=== PATIENT | male | born 1980 | race Caucasian/White ===

== ENCOUNTER 2020-09-03 18:04 | Outpatient (REF) | payer MEDICAID, SELFPAY ==
[2020-09-03 21:40] LABS: Hemoglobin A1C 5.5 % (<5.7)
[2020-09-03 22:02] LABS: ALT 54 U/L (16-63); AST 37 U/L (15-37); Albumin 4.2 g/dL (3.4-5.0); Alkaline Phosphatase 124 U/L (46-116); Anion Gap 6.6 mmol/L (3-11); BUN 16 mg/dL (7-18); Bilirubin, Total 0.2 mg/dL (0.2-1.0); CO2 29.4 mmol/L (21.0-32.0); CREATININE 1.17 mg/dL (0.70-1.30); Chloride 104 mmol/L (98-107); Glucose 105 mg/dL (74-106); Potassium 4.4 mmol/L (3.5-5.1); Sodium 140 mmol/L (136-145)
[2020-09-03 22:35] LABS: Calculated LDL 116 mg/dL (<100); Cholesterol 208 mg/dL (<200); HDL Cholesterol 43 mg/dL (40-60); Triglyceride 248 mg/dL (<150)
== END 2020-09-03 18:24 ==
LOC: NCHCN 18:04
PROVIDERS: Visit Provider Family Medicine
DX: R73.03 Prediabetes (principal); I10 Essential (primary) hypertension; E78.5 Hyperlipidemia, unspecified
CPT/HCPCS: 80053; 80061; 83036

== ENCOUNTER 2022-05-09 16:25 | Outpatient (REF) | payer MEDICAID, SELFPAY ==
[2022-05-09 20:43] LABS: ALT 118 U/L (16-63); AST 54 U/L (15-37); Albumin 4.1 g/dL (3.4-5.0); Alkaline Phosphatase 157 U/L (46-116); Anion Gap 9.2 mmol/L (3-11); BUN 14 mg/dL (7-18); Bilirubin, Total 0.3 mg/dL (0.2-1.0); CO2 26.8 mmol/L (21.0-32.0); CREATININE 1.2 mg/dL (0.70-1.30); Calcium 8.8 mg/dL (8.5-10.1); Calculated LDL 130 mg/dL (<100); Chloride 103 mmol/L (98-107); Cholesterol 209 mg/dL (<200); Glucose 108 mg/dL (74-106); HDL Cholesterol 41 mg/dL (40-60); Sodium 139 mmol/L (136-145); Total Protein 6.9 g/dL (6.4-8.2); Triglyceride 194 mg/dL (<150)
== END 2022-05-09 16:26 | disposition home or self-care (01) ==
LOC: NCHCN 16:25
PROVIDERS: Visit Provider Family Medicine
DX: E78.5 Hyperlipidemia, unspecified (principal); K76.0 Fatty (change of) liver, not elsewhere classified; R94.5 Abnormal results of liver function studies
CPT/HCPCS: 80053; 80061

== ENCOUNTER 2022-10-04 17:25 | Outpatient (REF) | payer MEDICAID, SELFPAY ==
[2022-10-04 20:48] LABS: HCT 46.8 % (40.0-50.0); HGB 15.7 g/dL (13.5-17.5); MCH 29.5 pg (27.0-33.0); MCHC 33.5 % (32.0-36.0); MCV 88 fL (80-95); Platelet Count 169 10^3/uL (130-400); RBC 5.33 10^6/uL (4.36-5.78); RDW 12.4 % (11.8-14.1)
[2022-10-04 20:59] LABS: Prothrombin Time 9.9 sec (9.3-11.0)
== END 2022-10-04 17:26 | disposition home or self-care (01) ==
LOC: NCHCN 17:25
PROVIDERS: Visit Provider Family Medicine
DX: K76.0 Fatty (change of) liver, not elsewhere classified (principal)
CPT/HCPCS: 85027; 85610

== ENCOUNTER 2023-06-15 10:29 | Outpatient (REF) | payer MEDICAID, SELFPAY ==
[2023-06-15 15:17] LABS: INR 0.9 (0.9-1.1); Prothrombin Time 9.3 sec (9.3-11.0)
[2023-06-15 15:27] LABS: Hemoglobin A1C 5.7 % (<5.7)
[2023-06-15 15:31] LABS: ALT 130 U/L (16-63); AST 80 U/L (15-37); Albumin 3.6 g/dL (3.4-5.0); Alkaline Phosphatase 157 U/L (46-116); Anion Gap 9.6 mmol/L (3-11); BUN 11 mg/dL (7-18); Bilirubin, Total 0.4 mg/dL (0.2-1.0); CO2 25.4 mmol/L (21.0-32.0); Calcium 8.9 mg/dL (8.5-10.1); Calculated LDL 94 mg/dL (<100); Chloride 101 mmol/L (98-107); Cholesterol 171 mg/dL (<200); Estimated GFR 96.97 (mL/min/1.73m2); Glucose 132 mg/dL (74-106); HDL Cholesterol 37 mg/dL (40-60); Potassium 4.1 mmol/L (3.5-5.1); Sodium 136 mmol/L (136-145); TSH (W/Ref FT4) 2.45 uIU/mL (0.36-3.74); Triglyceride 202 mg/dL (<150)
[2023-06-18 09:04] LABS: Hepatitis B Surface Ag Negative (Negative)
[2023-06-18 09:37] LABS: Hep B Core Antibody Negative (Negative)
[2023-06-18 10:01] LABS: Hepatitis C Ab w Rflx HCV PCR Negative (Negative)
== END 2023-06-15 10:30 | disposition home or self-care (01) ==
LOC: NCHCN 10:29
PROVIDERS: PCP Family Medicine; Visit Provider Family Medicine
DX: E88.81 Metabolic syndrome and other insulin resistance (principal); K76.0 Fatty (change of) liver, not elsewhere classified; R73.03 Prediabetes; E78.5 Hyperlipidemia, unspecified; Z13.29 Encounter for screening for other suspected endocrine disorder; Z01.84 Encounter for antibody response examination; R94.5 Abnormal results of liver function studies; R79.89 Other specified abnormal findings of blood chemistry
CPT/HCPCS: 80053; 80061; 86704; 86803; 87340; 83036; 84443; 85610

== ENCOUNTER 2024-05-28 19:41 | Outpatient (REF) | payer MEDICAID, SELFPAY ==
[2024-05-28 21:39] LABS: ALT 171 U/L (16-63); AST 107 U/L (15-37); Albumin 4.2 g/dL (3.4-5.0); Alkaline Phosphatase 142 U/L (46-116); Anion Gap 10.7 mmol/L (3-11); BUN 11 mg/dL (7-18); Bilirubin, Total 0.29 mg/dL (0.2-1.0); CO2 26.3 mmol/L (21.0-32.0); Calcium 9.5 mg/dL (8.5-10.1); Calculated LDL 163 mg/dL (<100); Chloride 102 mmol/L (98-107); Cholesterol 237 mg/dL (<200); Estimated GFR 96.37 (mL/min/1.73m2); Glucose 144 mg/dL (74-106); HDL Cholesterol 45 mg/dL (40-60); Sodium 139 mmol/L (136-145); Total Protein 7.5 g/dL (6.4-8.2); Triglyceride 146 mg/dL (<150)
[2024-05-28 22:12] LABS: Hemoglobin A1C 5.7 % (<5.7)
== END 2024-05-28 19:42 | disposition home or self-care (01) ==
LOC: NCHCN 19:41
PROVIDERS: PCP Internal Medicine; Visit Provider Internal Medicine
DX: I10 Essential (primary) hypertension (principal); E78.5 Hyperlipidemia, unspecified; R73.03 Prediabetes
CPT/HCPCS: 80053; 80061; 83036

== ENCOUNTER 2025-05-13 16:01 | Outpatient (REF) | payer MEDICAID, SELFPAY ==
[2025-05-13 21:25] LABS: ALT 52 U/L (16-63); AST 34 U/L (15-37); Albumin 4.1 g/dL (3.4-5.0); Alkaline Phosphatase 135 U/L (46-116); Anion Gap 4.6 mmol/L (3-11); BUN 14 mg/dL (7-18); Bilirubin, Total 0.2 mg/dL (0.2-1.0); CO2 33.4 mmol/L (21.0-32.0); Calcium 9.1 mg/dL (8.5-10.1); Calculated LDL 116 mg/dL (<100); Chloride 104 mmol/L (98-107); Cholesterol 198 mg/dL (<200); Estimated GFR 108.68 (mL/min/1.73m2); Glucose 96 mg/dL (74-106); HDL Cholesterol 37 mg/dL (>or=40); Potassium 4.1 mmol/L (3.5-5.1); Sodium 142 mmol/L (136-145); Total Protein 7.3 g/dL (6.4-8.2); Triglyceride 228 mg/dL (<150)
[2025-05-13 22:09] LABS: Hemoglobin A1C 5.3 % (<5.7)
== END 2025-05-13 16:02 | disposition home or self-care (01) ==
LOC: NCHCN 16:01
PROVIDERS: PCP Internal Medicine; Visit Provider Family Medicine
DX: R73.03 Prediabetes (principal); K76.0 Fatty (change of) liver, not elsewhere classified; Z13.220 Encounter for screening for lipoid disorders
CPT/HCPCS: 80053; 80061; 83036